=== PATIENT | female | born 1985 | race Caucasian/White ===

== ENCOUNTER 2016-08-22 18:10 | Emergency (ER) | payer SELFPAY ==
--- NOTE | 2016-08-22 18:54 | ED Physician Chart ---
Chief Complaint/HPI - Patient Information Date Seen:: 08/22/16 Time Seen:: 18:00 Chief Complaint:: Bug in L ear History of Present Illness:: Early this AM pt. awoke with sensation of "bug" in L ear. 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 Pt. still feels irritation. Allergies:: Allergies Allergy/AdvReac Type Severity Reaction Status Date / Time No Known Allergies Allergy Verified 08/22/16 18:36 Vitals:: Vital Signs - 8 hr 08/22/16 18:37 Temp 98.2 F HR 76 RR 17 BP 111/60 O2 Sat % 98 Historian:: Patient Review of Systems - Review of Systems General/Constitutional: No fever, No chills Skin: No skin lesions Head: No headache Eyes: No loss of vision ENT: Earache (ear irritation/ear ache.) Neck: No neck pain Cardio Vascular: No chest pain, No palpitations Pulmonary: No SOB, No cough GI: No nausea G/U: No dysuria Psychiatric: No prior psych history Hematopoietic: No bruising Neurological: No syncope Past Medical History - Past Medical History Past Medical History: No significant medical hx Family History: None Social History: Non Smoker, No Alcohol Surgical History: ( with 3 C-sections) Psychiatricy History: None Medication: None Physical Exam - Physical Examination General/Constitutional: Awake, Well-developed, well-nourished, Alert, No distress, GCS 15, Non-toxic appearing, Ambulatory Head: Atraumatic Eyes: Lids, conjuctiva normal, PERRL, EOMI Skin: Nl inspection ENMT: External ears, nose nl, Nasal exam nl, Lips, teeth, gums nl, Oropharynx nl , Tonsils nl (R TM somewhat reddened, nl. light reflex. No FB, minimal cerumen) Neck: Nontender, Full ROM w/o pain Respiratory: Nl effort/Exclusion, Clear to Auscultation, No Wheeze/Rhonchi/Rales Cardio Vascular: RRR, No murmur, gallop, rubs GI: No tenderness/rebounding/guarding : No CVA tenderness Extremities: No tenderness or effusion Neuro/Psych: Alert/oriented, Normal motor strength, Judgement/insight normal, Normal gait, No focal deficits ED Septic Shock - . Is Septic Shock (SBP<90, OR Lactate>4 mmol\\L) present?: No - <6hrs of presentation: Vital Signs: Vital Signs - 8 hr 08/22/16 18:37 Temp 98.2 F HR 76 RR 17 BP 111/60 O2 Sat % 98 Reassessment (Disposition) - Reassessment Reassessment Condition:: Improved - Diagnosis Diagnosis:: Dx: Acute external otitis, possible irritation from arthropod and subsequent paroxide. Possible otitis media. - Aftercare/Follow up Instructions Aftercare/Follow-Up Instructions:: Counseled pt & family regarding lab results/ diagnosis & need follow up Medication Prescribed:: Rx: Augmentin 500 mg one po q8hrs. Disp. #30. No refill. Rx: Cortisporin Otic suspension. 4 drops L ear canal 4 times a day and then apply cotton ball to ear canal. Disp. #1 stock size. No refill. - Patient Disposition Discharge/Transfer:: Home Condition at Disposition:: Improved ED Discharge Plan - Patient Disposition Admit/Discharge/Transfer: PT DISCHARGED HOME Condition at Disposition: Improved
== END 2016-08-22 19:15 | disposition home or self-care (01) ==
LOC: ER 18:10
DX: H60.502 Unspecified acute noninfective otitis externa, left ear (principal)
CPT/HCPCS: Z7502